=== PATIENT | male | born 1950 ===

== ENCOUNTER 2025-01-23 06:17 | Day surgery (SDC) | payer OTHER, SELFPAY ==
--- NOTE | 2025-01-17 13:40 | CM ---
Addendum entered by Ruby Pham RN 01/24/25 10:58:
Cm spoke with Cindi [facility] keycase assembler. She will follow up with patient to assist with COURT REPORTER care at home. Patient has historically had a difficult time keeping aides due to staffing and other conflicts. CM will remain available as needed.
Addendum entered by Ruby Pham RN 01/20/25 12:42:
Patient's [facility] keycase assembler called this CM back. CM left message for Cindi. CM further emailed [facility] keycase assembler to request assistance with obtaining COURT REPORTER assistance for patient.
Addendum entered by Ruby Pham RN 01/17/25 13:55:
Patient's [facility] Clinical Informatics Manager
Cindi Rogers
[phone]
CM left message to assist with COURT REPORTER assistance.
Original Note:
CM spoke with patient via live telephone. Cm confirmed that patient has medical transport assistance through [facility]. Patient stated that his room mate is disabled but is able to provide supervision during his post operative time. Patient is aware that
he is able to receive COURT REPORTER assistance through [facility] and is going to provide this CM with patient's keycase assembler through [facility]. CM will await call back with plan to assist with obtaining COURT REPORTER assistance.
--- NOTE | 2025-01-18 10:27 | VNURNOTE ---
Chart reviewed. Reviewed case w/CM Ruby. Pt not current with VN agency- [facility] is pt's insurance. No indication for VN per pre-admit notes, H&P. No referral placed.
[2025-01-23 10:11] VITALS: BMI 28.4
[2025-01-23 10:12] VITALS: BMI 28.4
[2025-01-23 10:35] VITALS: BP 123/87
[2025-01-23] MEDS: NORMOSOL-R/PLASMALYTE-A 1000 IV (10:37)
[2025-01-23 13:23] VITALS: BP 128/83
[2025-01-23 13:30] VITALS: BP 133/70
[2025-01-23 13:45] VITALS: BP 123/72
[2025-01-23 14:00] VITALS: BP 111/67
[2025-01-23] MEDS: COMPAZINE 10 MG IV (14:07)
== END 2025-01-23 14:30 | disposition home or self-care (01) ==
LOC: SDS 06:17
PROVIDERS: ATTENDING PHYSICIAN Orthopaedic Surgery Hand Surgery
DX: M18.12 Unilateral primary osteoarthritis of first carpometacarpal joint, left hand (principal); M19.032 Primary osteoarthritis, left wrist
CPT/HCPCS: 25447